=== PATIENT | male | born 1940 | race Two or more races ===

== ENCOUNTER 2024-02-12 15:32 | Emergency (ER) | payer MEDICARE ==
[~2024-02-12] VITALS: Ht 154.9 cm; Wt 73.3 kg
[2024-02-12] MEDS: NITROGLYCERIN 0.4 MG SL TAB SL ONE ×2 (17:13→20:41)
[2024-02-12 17:14] VITALS: TEMP 98.4
--- NOTE | 2024-02-12 17:20 | DVH ---
EXAM: CT Head Without Intravenous Contrast CLINICAL INDICATION: HTN TECHNIQUE: Axial computed tomography images of the head/brain without intravenous contrast. This CT exam was performed using one or more of the following dose reduction techniques: automated exposure control, adjustment of the mA and/or kV according to patient size, and/or use of iterative reconstru ction technique. 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 The cerebral an d cerebellar sulci are prominent consistent with brain atrophy. Areas of decreased attenuation in th e deep cerebral white matter are consistent with small vessel ischemic/degenerative changes. No acut e intracranial hemorrhage, midline shift or mass effect. BONES/JOINTS: Unremarkable. No acute fracture. SOFT TISSUES: Unremarkable. SINUSES: Unremarkable as visualized. No acute sinusitis. MASTOID AIR CELLS: Unremarkable as visualized. No mastoid effusion. OTHER FINDINGS: . . For the MRI. IMPRESSION: 1. No acute intracranial hemorrhage, midline shift or mass effect. 2. Generalized brain atrophy. 3. Small vessel ischemic/degenerative changes. HS:Y
[2024-02-12 17:37] LABS: Basophils # (auto) 0.1 10 ^3/uL (0-0.2); Basophils % (auto) 1.4 % (0.0-2.0); Eosinophils # (auto) 0.2 10 ^3/uL (0-0.8); Eosinophils % (auto) 3.9 % (0.0-7.0); Hematocrit 37.6 % (41.0-53.0); Hemoglobin 12.4 g/dL (13.5-17.5); Lymphocytes # (auto) 1.3 10 ^3/uL (0.4-5.4); Lymphocytes % (auto) 20.3 % (10.0-50.0); Mean Corpuscular Hemoglobin 32.6 pg (28.0-32.0); Mean Corpuscular Hgb Conc. 33.1 g/dL (32.0-36.0); Mean Corpuscular Volume 98.7 fL (80.0-100.0); Monocytes # (auto) 0.7 10 ^3/uL (0-1.3); Monocytes % (auto) 11.4 % (0.0-12.0); Nucleated Red Blood Cells % 0.1 %; Platelet Count (auto) 245 10^3/uL (140-450); Red Cell Distribution Width 17.2 % (11.8-14.3); White Blood Cell 6.3 10^3/uL (4.4-10.8)
[2024-02-12 17:57] LABS: Alanine Aminotransferase 15 U/L (7-40); Albumin 3.9 g/dL (3.2-4.8); Alkaline Phosphatase 67 U/L (46-116); Anion Gap 7 (5-15); Aspartate Aminotransferase 13 U/L (13-40); BUN/Creatinine Ratio 17.1 (10.0-20.0); Bilirubin, Total 0.6 mg/dL (0.2-1.0); Blood Urea Nitrogen 13 mg/dL (9-23); Calcium 10.3 mg/dL (8.7-10.4); Carbon Dioxide 28 mmol/L (20-31); Chloride 107 mmol/L (98-107); Glucose 93 mg/dL (74-106); Potassium 4.8 mmol/L (3.5-5.1); Sodium 142 mmol/L (136-145)
--- NOTE | 2024-02-12 18:34 | ED.PDOC ---
HPI Comments 83-year-old male patient with past medical history of hypertension and coronary artery disease status post PCI done eight [address] CUEVAS presented with complaints of high blood pressure. Patient mentioned having high blood pressure home recordings above 180s after which he went to urgent care where again the blood pressure was in hypertensive urgency/emergency brain and was referred to ED. on presentation to the ED, patient does not have any active complaints. He denied any active complaints of chest pain, nausea, vomiting, palpitations, shortness of breath, dizziness, orthopnea, PND. Past medical history Hypertension, coronary artery disease Past surgical history PCI 8 years ago Medication history Valsartan, warfarin, atorvastatin, Lasix, potassium chloride, Excedrin, metolazone, Pletal Social history Patient actively smokes But denied alcohol intake, marijuana intake or any other drug intake Lives with ROS Constitutional: No: Fever, Chills, Sweats, Weakness, Malaise, Other Eyes: No blurring vision Respiratory: No: Cough, Dry, Shortness of breath, SOB with excertion, Wheezing, Hemoptysis, Pleuritic Pain, Sputum, Wheezing, Other Cardiovascular: No: Chest Pain, Palpitations, Orthopnea, Paroxysmal Noc. Dyspnea, Edema, Lt Headedness, Other Gastrointestinal: No: Nausea, Vomiting, Abdominal Pain, Diarrhea, Constipation, Melena, Hematochezia, Other Musculoskeletal: No: other, neck pain, shoulder pain, arm pain, back pain, hand pain, leg pain, foot pain Neurological:; No: Weakness, Numbness, Incoordination, Change in speech, Confusion, Seizures Examination General Appearance: Alert, Oriented X3, Cooperative, No acute distress Respiratory: Clear to auscultation, Normal air movement Cardiovascular: Regular rate, Normal S1, Normal S2 Abdominal: Soft Extremities: mild Pedal edema bilateral Neuro: Normal speech Chief Complaint: High Blood Pressure Time Seen by MD: 15:56 Primary Care Provider: unknown Allergies: Coded Allergies: NO KNOWN ALLERGIES (Unverified , 02/12/24) Mode of Arrival: Ambulatory Physical Exam General Appearance: Other (Mentioned in the note) HEENT: Other (Mentioned in the note) Neck: Other (Mentioned in the note) Respiratory: Other (Mentioned in the note) Cardiovascular: Other (Mentioned in the note) Breast Exam: Deferred Gastrointestinal: Other (Mentioned in the note) Genitalia: Deferred Pelvic: Deferred Rectal: Deferred Extremities: Other (Mentioned in the note) Neurologic: Other (Mentioned in the note) Cerebellar Function: Other (Mentioned in the note) Reflexes: Other (Mentioned in the note) Skin: Other (Mentioned in the note) Lymphatic: Other (Mentioned and not) CP Differential Dx Differential Diagnosis: Electrolyte Disorder, Heart Failure, Hyperthyroidism Differential Diagnosis: HTN Essential, HTN Accelerated, Medical NonCompliance, Other Differential Diagnosis: Myocardial Infarction, Other X-Ray, Labs, Meds, VS Vital Signs Date Time Temp Pulse Resp B/P (MAP) Pulse Ox O2 Delivery O2 Flow Rate FiO2 02/12/24 21:52 98 Room Air* 0 21 02/12/24 21:24 77 16 178/96 (123) 95 02/12/24 21:24 178/96 02/12/24 20:41 199/100 02/12/24 19:30 80 18 199/111 (140) 96 02/12/24 18:16 158/96 02/12/24 17:14 71 18 98 Room Air 02/12/24 17:14 98.4 71 17 198/98 (131) 96 98.4 02/12/24 17:13 198/98 02/12/24 15:45 97.5 89 19 179/95 (123) 98 Lab Test 02/12/24 19:59 02/12/24 19:36 02/12/24 17:24 Range/Units Troponin I High Sensitivity 10 9 </=54 ng/L Urine Color Light-yellow Yellow Urine Clarity Clear Clear Urine pH 6.5 5.0-9.0 Urine Specific [place] 1.020 1.001-1.035 Urine Protein Negative Negative Urine Ketones Negative Negative Urine Blood Negative Negative /uL Urine Nitrite Negative Negative Urine Bilirubin Negative Negative Urine Urobilinogen Normal Negative mg/dL Urine Leukocyte Esterase Negative Negative /uL Urine RBC 2 0 - 3 /hpf Urine WBC 1 0 - 3 /hpf Urine Squamous Epithelial Cells Few <5 /hpf Urine Bacteria None seen None Seen /hpf Urine Hyaline Casts Few 0 - 2 /lpf Urine Glucose Normal Normal mg/dL White Blood Count 6.3 4.4-10.8 10^3/uL Red Blood Count 3.80 L 4.5-5.90 10^6/uL Hemoglobin 12.4 L 13.5-17.5 g/dL Hematocrit 37.6 L 41.0-53.0 % Mean Corpuscular Volume 98.7 80.0-100.0 fL Mean Corpuscular Hemoglobin 32.6 H 28.0-32.0 pg Mean Corpuscular Hemoglobin Concent 33.1 32.0-36.0 g/dL Red Cell Distribution Width 17.2 H 11.8-14.3 % Platelet Count 245 140-450 10^3/uL Mean Platelet Volume 7.3 6.9-10.8 fL Neutrophils (%) (Auto) 63.0 37.0-80.0 % Lymphocytes (%) (Auto) 20.3 10.0-50.0 % Monocytes (%) (Auto) 11.4 0.0-12.0 % Eosinophils (%) (Auto) 3.9 0.0-7.0 % Basophils (%) (Auto) 1.4 0.0-2.0 % Neutrophils # (Auto) 4.0 1.6-8.6 10 ^3/uL Lymphocytes # (Auto) 1.3 0.4-5.4 10 ^3/uL Monocytes # (Auto) 0.7 0-1.3 10 ^3/uL Eosinophils # (Auto) 0.2 0-0.8 10 ^3/uL Basophils # (Auto) 0.1 0-0.2 10 ^3/uL Nucleated Red Blood Cells 0.1 % Sodium Level 142 136-145 mmol/L Potassium Level 4.8 3.5-5.1 mmol/L Chloride Level 107 98-107 mmol/L Carbon Dioxide Level 28 20-31 mmol/L Anion Gap 7 5-15 Blood Urea Nitrogen 13 9-23 mg/dL Creatinine 0.76 0.700-1.30 mg/dL Glomerular Filtration Rate Calc 89 >90 mL/min BUN/Creatinine Ratio 17.1 10.0-20.0 Serum Glucose 93 74-106 mg/dL Calcium Level 10.3 8.7-10.4 mg/dL Total Bilirubin 0.6 0.2-1.0 mg/dL Aspartate Amino Transferase (AST) 13 13-40 U/L Alanine Aminotransferase (ALT) 15 7-40 U/L Alkaline Phosphatase 67 46-116 U/L Total Protein 6.0 5.7-8.2 g/dL Albumin 3.9 3.2-4.8 g/dL [facility] [id number] [facility] [address] Ph: [phone] DIAGNOSTIC IMAGING Diagnostic Imaging Report : [id number] Signed PATIENT: CHRISTOS CANNONACCT: [id number] UNIT: [id number] : 1940 LOC: ER ROOM / BED: / AGE / SEX: 83 / M ADM STATUS: REG ER SERVICE ORDERING PHYSICIAN: IVAN ULRICH DO PROCEDURE(s): HWOCT - HEAD WITHOUT CONTRAST REASON: HTN ORDER NUMBER(s): [id number], ACCESSION NUMBER(s): [id number] EXAM: CT Head Without Intravenous Contrast CLINICAL INDICATION: HTN TECHNIQUE: Axial computed tomography images of the head/brain without intravenous contrast. This CT exam was performed using one or more of the follo wing dose reduction techniques: automated exposure control, adjustment of the mA and/or kV according to patient size, and/or use of iterative reconstruction technique. 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 The cerebral and cerebellar sulci are prominent consistent with brain atrophy. Areas of decreased attenuation in the deep cerebral white matter are consistent with small vessel ischemic/degenerative changes. No acute intracranial hemorrhage, midline shift or mass effect. BONES/JOINTS: Unremarkable. No acute fracture. SOFT TISSUES: Unremarkable. SINUSES: Unremarkable as visualized. No acute sinusitis. MASTOID AIR CELLS: Unremarkable as visualized. No mastoid effusion. OTHER FINDINGS: . . For the MRI. IMPRESSION: 1. No acute intracranial hemorrhage, midline shift or mass effect. 2. Generalized brain atrophy. 3. Small vessel ischemic/degenerative changes. HS:Y ATED BY: PARISH LUZ MD DICTATED DATE/TIME: 02/12/241717 SIGNED BY: PARISH LUZ MD SIGNED DATE/TIME: 02/12/241717 CC: Time of 1ST Reevaluation: 20:50 Reevaluation 1ST: Unchanged (Patient's blood pressure improved to 158/96, but later again went up to 199/100. Patient took his home medications in the evening in the ED around 20 30) Time of 2ND Reevaluation: 21:30 Reevaluation 2ND: Improved (BP improved) Patient Education/Counseling: Diagnosis, Treatment Family Education/Counseling: Diagnosis, Treatment Comments Patient presented with the hypertensive crisis. workup was initiated. Patient was given: Nitroglycerin sublingual [address] was within normal limits Patient took his home medication later in the evening Patient's blood pressure came out of the hypertensive crisis range. Patient has been observed in the ED adequate length of time to insure improvement/stability. Patient was discharged to home on advised to follow up with PCP within 1-2 days. Departure 1 Departure Time of Disposition: 21:44 Impression: Primary Impression: Hypertensive crisis Disposition: HOME / SELF CARE / HOMELESS Condition: Stable Additional Instructions: Additional discharge instructions: You MUST follow-up with your primary care/family doctor in 1 to 2 days. If you are unable to see your primary care/family doctor, please return to our emergency room for re-assessment and re-evaluation in 1 to 2 days. Return to the emergency room here in our facility or to the nearest ER [facility] if your symptoms change or worsen. CONSULTATIONS: you MUST Follow-up for consultation as soon as possible with: --cardiology in 1-2 days. Please call for appointment. You MUST call the consultants office yourself to make an appointment. You may need to arrange that through your insurance and/or your primary/family doctor. If you are unable to see the recruiting operations consultant in 1 to 2 days, you must return to our emergency room (or any other ER of your choice) for re-assessment and re- evaluation. Adequate fluid hydration. Salt restrictions. Monitor blood pressure at home at least 3 times a day. Below is a copy of your radiological report for follow up: Discharged With: Self Critical Care Note Critical Care Time?: Yes (35 min-critical care time only) Stability Stability form required: No Heart Score Heart Score: Heart Score Response (Comments) Value History Slightly Suspicious 0 EKG Normal 0 Age >65 2 Risk Factors 1 or 2 risk factors 1 Troponin Normal limit 0 Total 3 I personally scribed for IVAN ULRICH DO ([email or web address]) on 02/12/24 at 18:34. Electronically submitted by Herberth Murphy ([email or web address]). IVAN ULRICH DO Feb 12, 2024 18:34 ESTIVEN ANDERSON RESIDENT Feb 12, 2024 20:35
[2024-02-12 19:38] LABS: Urine Bacteria None Seen /hpf (None Seen)
[2024-02-12 19:48] LABS: Urine Blood Negative /uL (Negative); Urine Clarity Clear (Clear); Urine Color Light-Yellow (Yellow); Urine Hyaline Cast FEW /lpf (0 - 2); Urine Protein, UAD Negative (Negative); Urine Urobilinogen Normal (Negative); Urine WBC 1 /hpf (0 - 3); Urine pH 6.5 (5.0-9.0)
[2024-02-12 21:24] VITALS: BP 178/96; PULSE 77; RESP 16
[2024-02-12 21:52] VITALS: O2SAT 98
== END 2024-02-12 21:55 | disposition home or self-care (01) ==
LOC: ER 15:32
DX: I16.9 Hypertensive crisis, unspecified (principal); I25.10 Atherosclerotic heart disease of native coronary artery without angina pectoris; R51.9 Headache, unspecified; F17.200 Nicotine dependence, unspecified, uncomplicated; Z95.5 Presence of coronary angioplasty implant and graft; Z79.899 Other long term (current) drug therapy
CPT/HCPCS: 36415; 70450; 80053; 81001; 84484; 85025